=== PATIENT | male | born 1965 | race African-American/Black ===

== ENCOUNTER 2020-10-30 22:40 | Emergency (ER) | payer BC ==
[~2020-10-30] VITALS: Ht 177.8 cm; Wt 108.9 kg
[2020-10-30 23:29] LABS: PLATELET COUNT 249 K/uL (142-355)
[2020-10-30 23:39] LABS: POTASSIUM 3.4 mmol/L (3.6-5.2)
[2020-10-31 03:05] VITALS: BP 125/73; TEMP 97.8
== END 2020-10-31 03:05 | disposition home or self-care (01) ==
LOC: ED 22:49
PROVIDERS: Emergency Medicine Emergency Medical Services
DX: R51.9 Headache, unspecified (principal); E87.6 Hypokalemia; Z03.818 Encounter for observation for suspected exposure to other biological agents ruled out
CPT/HCPCS: 80053; 80307; 81000; 85027; 87635; 93005; 96360; 96361; 96374; 99284; J1885; Q9963; U0003